=== PATIENT | female | born 1980 | race Caucasian/White ===

== ENCOUNTER 2020-11-26 06:33 | Day surgery (SDC) | payer MEDICAID, OTHER ==
[2020-11-21 13:35] LABS: Hematocrit 36.8 % (30.3-42.9); Hemoglobin 12.5 gm/dl (10.1-14.3); Mean Corpuscular HGB Conc 34 % (30-34); Mean Corpuscular Volume 92 fl (79-97); Platelet Count 312 K/mm3 (140-440); Red Blood Count 4.02 M/mm3 (3.65-5.03); Red Cell Distribution Width 13.7 % (13.2-15.2)
[~2020-11-26 06:33] MED LIST: ACETAMINOPHEN 500 MG TAB PO SCH; CELECOXIB 200 MG CAP PO NR; GABAPENTIN 300 MG CAP PO NR; LACTATED RINGERS 1,000 ML IV SCH; MIDAZOLAM 2 MG/2 ML INJ IV NR; ceFAZolin/Water 2 GM/20 ML 2 GM/20 ML SYRINGE IV NR
--- NOTE | 2020-11-26 07:27 | Anesthesia Day of Surgery ---
Anesthesia Day of Surgery - Day of Surgery Patient Examined: Yes Patient H&P Reviewed: Yes Patient is NPO: Yes Beta Blockers: No Cardiac Clearance: No Pulmonary Clearance: No Lester's Test: N/A
--- NOTE | 2020-11-26 07:28 | Anesthesia Consultation ---
Anesthesia Consult and Med Hx Date of service: 11/26/20 - Airway Anesthetic Teeth Evaluation: Good ROM Head & Neck: Adequate Mental/Hyoid Distance: Adequate Mallampati Class: Class I Intubation Access Assessment: Good - Pulmonary Exam CTA: Yes - Cardiac Exam Cardiac Exam: RRR - Pre-Operative Health Status ASA Pre-Surgery Classification: ASA1 Proposed Anesthetic Plan: General - Pulmonary Hx Smoking: No Hx Asthma: No COPD: No Hx Pneumonia: No Hx Sleep Apnea: No - Cardiovascular System Hx Hypertension: No Hx Heart Attack/AMI: No Hx Angina: No - Central Nervous System Hx Seizures: No Hx Psychiatric Problems: No - Gastrointestinal Hx Gastroesophageal Reflux Disease: No - Endocrine Hx Renal Disease: No Hx End Stage Renal Disease: No Hx Insulin Dependent Diabetes: No Hx Non-Insulin Dependent Diabetes: No Hx Hypothyroidism: No Hx Hyperthyroidism: No - Hematic Hx Anemia: No Hx Sickle Cell Disease: No - Other Systems Hx Alcohol Use: No Hx Cancer: No
[2020-11-26] MEDS ORDERED: dexAMETHasone 20 MG/5 ML VIAL ONE (07:37)
[2020-11-26] MEDS ORDERED: propofoL 200 MG/20 ML VIAL IV ONE (07:37)
[2020-11-26] MEDS ORDERED: ONDANSETRON 4 MG/2 ML INJ ONE (07:37)
[2020-11-26] MEDS ORDERED: LIDOCAINE MPF (2%) 20 MG/1 ML VIAL 5 ML ONE (07:37)
[2020-11-26] MEDS ORDERED: BUPIVACAINE/PF (0.25%) 2.5 MG/ML 30 ML VIAL INFILTRATI ONE ×2 (07:49→09:25)
[2020-11-26] MEDS ORDERED: LIDOCAINE-MPF (1%) 10 MG/1 ML VIAL 5 ML ONE (07:49)
[2020-11-26] MEDS ORDERED: ALBUTEROL 8.5 GM MDI INHALATION IH ONE (08:17)
[2020-11-26] MEDS ORDERED: HYDROmorphone 1 MG/1 ML INJ ONE (08:31)
[2020-11-26] MEDS ORDERED: LIDOCAINE-MPF (1%) 10 MG/1 ML VIAL 5 ML INFILTRATI ONE (09:25)
[2020-11-26] MEDS ORDERED: BACITRACIN ZINC OINT 28.4 GM TP ONE ×2 (09:30→09:40)
[2020-11-26] MEDS ORDERED: HYDROmorphone 1 MG/1 ML INJ IV PRN (09:30)
[2020-11-26] MEDS ORDERED: oxyCODONE /ACETAMINOPHEN 5-325MG TAB PO PRN (09:30)
[2020-11-26] MEDS ORDERED: ONDANSETRON 4 MG/2 ML INJ IV PRN (09:30)
--- NOTE | 2020-11-26 09:50 | Mammography Report ---
BREAST SPECIMEN RADIOGRAPH HISTORY: Lumpectomy FINDINGS/IMPRESSION: The submitted radiograph or radiographs demonstrate(s) the presence of a a biopsy marker within a sof t tissue mass. There is no localization wire. Specimen radiograph is not demarcated right or left. Signer Name: Diane Contreras MD Signed: 11/26/2020 9:46 AM Workstation Name: [id number]
--- NOTE | 2020-11-26 09:54 | Short Stay Summary ---
Short Stay Documentation Date of service: 11/26/20 - History H&P: obtained from office - Allergies and Medications Current Medications: Allergies No Known Allergies Allergy (Unverified 11/20/20 15:14) Home Medications Medication Instructions Recorded Confirmed Last Taken Type Ibuprofen [Motrin 800 MG tab] 800 mg PO Q8HR PRN #10 tablet 11/26/20 Unknown Rx Active Medications Acetaminophen (Acetaminophen 500 Mg Tab) 1,000 mg PO PREOP LUMA Celecoxib (Celecoxib 200 Mg Cap) 200 mg PO PREOP NR Stop: 11/26/20 19:00 Gabapentin (Gabapentin 300 Mg Cap) 300 mg PO PREOP NR Stop: 11/26/20 19:00 Hydromorphone HCl (Hydromorphone 1 Mg/1 Ml Inj) 0.5 mg IV Q10MIN PRN PRN Reason: Pain , Severe (7-10) Stop: 11/26/20 17:00 Cefazolin Sodium (Ancef/Sterile Water 2 Gm/20 Ml) 2 gm in 20 mls @ 80 mls/hr IV PREOP NR; Protocol Stop: 11/26/20 21:00 Lactated Ringer's (Lactated Ringers) 1,000 mls @ 100 mls/hr IV DIRECT LUMA Stop: 11/26/20 23:59 Midazolam HCl (Midazolam 2 Mg/2 Ml Inj) 2 mg IV PREOP NR Stop: 11/26/20 19:00 Ondansetron HCl (Ondansetron 4 Mg/2 Ml Inj) 4 mg IV ONCE PRN PRN Reason: Nausea And Vomiting Stop: 11/26/20 17:00 Oxycodone/Acetaminophen (Oxycodone /Acetaminophen 5-325mg Tab) 1 tab PO ONCE PRN PRN Reason: Pain, Moderate (4-6) Stop: 11/26/20 17:00 - Brief post op/procedure progress note Date of procedure: 11/26/20 Pre-op diagnosis: Right breast mass upper outer quadrant Post-op diagnosis: same Procedure: Right breast mass excisional biopsy Anesthesia: GETA Findings: Right breast mass with clip present Surgeon: EVARISTO SCHOFIELD Estimated blood loss: minimal Pathology: list (right breast mass) Specimen disposition: to lab Condition: stable - Disposition Condition at discharge: Good Disposition: DC- TO HOME OR SELFCARE Short Stay Discharge Plan Activity: other (no heavy lifting) Diet: regular Wound: keep clean and dry (may shower in 48 hours; no baths; wear breast binder; apply bacitracin to breast twice daily) Follow up with: EVARISTO SCHOFIELD MD [Staff Physician] - 7 Days Prescriptions: Ibuprofen [Motrin 800 MG tab] 800 mg PO Q8HR PRN #10 tablet PRN Reason: Pain , Severe (7-10)
--- NOTE | 2020-11-26 09:59 | Operative Report ---
Operative Report Operative Report: Operative Report: November 26, 2020 Preoperative diagnosis: Right breast mass of the upper outer quadrant Postoperative diagnosis: Same Procedure: Complex right breast mass excisional biopsy of upper outer quadrant Surgeon: Ayanna Easton MD Anesthesia: General Findings: Right breast mass at the 10:00 position 6 cm FN with clip present Complications: None EBL: Less then 25 cc, minimal Disposition: PACU in good condition Indications for operative procedure: This is a 40-year-old young lady with right breast palpable mass at 9=10:00 position 6 cm FN. Recent right breast palpable mass-biopsied with findings of adenosis with fibrosis; recommendations for excisional biopsy for a definitive diagnosis given irregularity. Patient wished to proceed with the above proceure. Procedure in detail: Patient was taken to the operating room and was laid supine. Gen. anesthesia was administered. Right breast and axilla were prepped and draped in the normal sterile operative fashion. Timeout was performed. Ultrasound was used as well identification of known breast mass- at the 10:00 position 6 cm FN. Attention was then taken towards the right breast. Ultrasound was used as well. A periareolar breast incision was made around the 10:00 positions with a 15 blade knife and dissection taken down to subcutaneous tissues. The superior breast tissues were opened anterior to the mass using the Bovie cautery. The right breast mass was the grasped and appropriately dissected free with the aid of the Bovie cautery and using blunt dissection. Complex excision performed. Hemostasis was obtained with the Bovie cautery. Specimen was sent to radiology and pathology. Ultrasound used and no other suspicious lesions present. The breast cavity was appropriately irrigated and suctioned. Hemostasis obtained using the Bovie cautery and then noted. Deep breast tissue were approximated and closed using interrupted 3-0 Vicryl and the subcutaneous tissues approximated and closed using interrupted 3-0 Vicryl followed by closing of the skin with a running 4-0 Monocryl and dermabond. The patient tolerated surgery very well and she was awaken from anesthesia without any complication and transported to PACU in good condition.
--- NOTE | 2020-11-26 11:38 | Post Anesthesia Evaluation ---
- Post Anesthesia Evaluation Patient Participated: Yes Airway Patent: Yes Stable Respiratory Function: Yes Nausea/Vomiting: No Temp > 96.8F: Yes Pain Manageable: Yes Adequeate Hydration: Yes Anesthesia Complications: No
[2020-11-26 11:58] VITALS: BP 109/75
== END 2020-11-26 06:34 | disposition home or self-care (01) ==
LOC: OR 06:33
PROVIDERS: ATTEND Surgery
DX: N63.11 Unspecified lump in the right breast, upper outer quadrant (principal); Z20.822 Contact with and (suspected) exposure to COVID-19; D24.1 Benign neoplasm of right breast; G47.30 Sleep apnea, unspecified; Z79.899 Other long term (current) drug therapy; Z98.891 History of uterine scar from previous surgery; Z98.890 Other specified postprocedural states
CPT/HCPCS: 19120; 36415; 76098; 84703; 85027; 88307; J0690; J1100; J1170; J2405; J2704; J7120; U0003